=== PATIENT | female | born 1960 | race Hispanic/Latino ===

== ENCOUNTER 2018-04-10 18:09 | Emergency (ER) | payer SELFPAY ==
[2018-04-10] MEDS ORDERED: Ketorolac Tromethamine 30 MG/ML VIAL ONE (19:05)
--- NOTE | 2018-04-10 19:29 | RAD ---
LEFT KNEE FOUR VIEWS: History: Knee pain without injury. FINDINGS: There are no signs of fracture, dislocation, or joint effusion. No significant arthritic change. IMPRESSION: Unremarkable left knee. POS: [facility]
== END 2018-04-10 19:44 | disposition home or self-care (01) ==
LOC: ERS 18:09
DX: M25.562 Pain in left knee (principal)
CPT/HCPCS: 96372; J1885